=== PATIENT | male | born 1945 | race Caucasian/White ===

== ENCOUNTER 2016-08-05 07:45 | Day surgery (SDC) | payer OTHER, MEDICARE ==
[2016-08-04 14:38] VITALS: BMI 30.3
[2016-08-05] MEDS ORDERED: LIDOCAINE HCL/PF 2% SDV 5ML VIAL ONE (08:17)
[2016-08-05] MEDS ORDERED: PROPOFOL 40 ML ONE (08:17)
[2016-08-05 08:56] VITALS: TEMP 97.5
[2016-08-05 09:26] VITALS: PULSE 65
[2016-08-05 09:41] VITALS: BP 123/74
--- NOTE | 2016-08-06 15:53 | PATH ---
Surgical Pathology Report Patient Name: URMILA DANIELS [facility]. Rec. #: [id number] /Age/Gender: 1945 (Age: 71) / M Account: [id number] Location: [facility]-ENDOSCOPY Taken: 08/05/2016 Received: 08/05/2016 Reported: 08/06/2016 Physicians: Tima Anderson M.D. Specimen(s) Received A: BX DUODENUM B: BX ANTRUM C: BX BODY OF STOMACH D: BX DISTAL ESOPHAGUS-GE JUNCTION E: BX MID ESOPHAGUS Clinical History Reflux, history of colon cancer Gastritis Final Diagnosis A. DUODENUM, BIOPSY: DUODENAL MUCOSA WITH CHRONIC INFLAMMATION, FOCAL CYDNEY'S GLANDS HYPERPLASIA AND FOCAL GASTRIC METAPLASIA CONSISTENT WITH PEPTIC DUODENITIS. NO HISTOLOGIC EVIDENCE OF GLUTEN SENSITIVE ENTEROPATHY (CELIAC DISEASE). B. STOMACH, ANTRUM, BIOPSY: GASTRIC ANTRAL MUCOSA WITH MODERATE CHRONIC GASTRITIS AND MILD REACTIVE GASTROPATHY. IMMUNOSTAIN FOR H. PYLORI IS NEGATIVE FOR ORGANISMS. C. STOMACH, BODY, BIOPSY: GASTRIC OXYNTIC MUCOSA WITH MODERATE CHRONIC GASTRITIS. IMMUNOSTAIN FOR H. PYLORI IS NEGATIVE FOR ORGANISMS. D. DISTAL ESOPHAGUS/GE JUNCTION, BIOPSY: SQUAMOCOLUMNAR JUNCTIONAL MUCOSA WITH ACTIVE AND CHRONIC INFLAMMATION WITH FOCAL SURFACE EROSION, REFLUX TYPE CHANGES, AND FOCAL INTESTINAL METAPLASIA (SEE COMMENT). NEGATIVE FOR DYSPLASIA. Comment: The findings may be compatible with Pastrana's esophagus in proper endoscopic settings. Endoscopic correlations and follow up are suggested. E. ESOPHAGUS, MID, BIOPSY: SQUAMOUS EPITHELIUM WITH CHRONIC INFLAMMATION REFLUX TYPE CHANGES. NO EVIDENCE OF EOSINOPHILIC ESOPHAGITIS. Electronically Signed Jeovany Valdez M.D. Gross Description A. Received in formalin, labeled "biopsy duodenum" are 4 chung, irregular portions of soft tissue ranging from 0.2-0.5 cm in greatest dimension. The specimens are submitted in toto in one cassette. B. Received in formalin, labeled "biopsy antrum" are 2 chung, irregular portions of soft tissue measuring 0.3 and 0.4 cm in greatest dimension. The specimens are submitted in toto in one cassette. C. Received in formalin, labeled "biopsy body of stomach" are 2 chung, irregular portions of soft tissue measuring 0.1 and 0.4 cm in greatest dimension. The specimens are submitted in toto in one cassette. D. Received in formalin, labeled "biopsy distal esophagus" are 4 chung, irregular portions of soft tissue ranging from 0.1-0.5 cm in greatest dimension. The specimens are submitted in toto in one cassette. E. Received in formalin, labeled "biopsy mid esophagus" are 2 chung, irregular portions of soft tissue averaging 0.3 cm in greatest dimension. The specimens are submitted in toto in one cassette. 08/05/201608/05/2016
== END 2016-08-05 09:58 | disposition home or self-care (01) ==
LOC: JASU-ENDO 07:45
PROVIDERS: ATTEND Internal Medicine Gastroenterology
PROC: 0DB98ZX Excision of Duodenum, Via Natural or Artificial Opening Endoscopic, Diagnostic (ICD-10-PCS; 2016-08-05)
PROC: 0DB68ZX Excision of Stomach, Via Natural or Artificial Opening Endoscopic, Diagnostic (ICD-10-PCS; 2016-08-05)
PROC: 0DB28ZX Excision of Middle Esophagus, Via Natural or Artificial Opening Endoscopic, Diagnostic (ICD-10-PCS; 2016-08-05)
PROC: 0DB38ZX Excision of Lower Esophagus, Via Natural or Artificial Opening Endoscopic, Diagnostic (ICD-10-PCS; principal; 2016-08-05 08:45)
DX: K29.50 Unspecified chronic gastritis without bleeding (principal); K29.80 Duodenitis without bleeding
CPT/HCPCS: 88305-TC; 88342-TC

== ENCOUNTER 2017-04-07 08:38 | Day surgery (SDC) | payer OTHER, MEDICARE ==
[2017-04-06 12:10] VITALS: BMI 29.5
[2017-04-07] MEDS ORDERED: LIDOCAINE HCL 2% (20ML MULTI-DOSE VIAL) NR ONE (09:15)
[2017-04-07] MEDS ORDERED: PROPOFOL 20 ML ONE ×2 (09:15)
[2017-04-07 09:50] VITALS: TEMP 97.3
[2017-04-07 11:39] VITALS: BP 114/66; PULSE 60
== END 2017-04-07 10:40 | disposition home or self-care (01) ==
LOC: JASU-ENDO 08:38
PROVIDERS: ATTEND Internal Medicine Gastroenterology
PROC: 0DJ08ZZ Inspection of Upper Intestinal Tract, Via Natural or Artificial Opening Endoscopic (ICD-10-PCS; principal; 2017-04-07 10:15)
DX: K44.9 Diaphragmatic hernia without obstruction or gangrene (principal)

== ENCOUNTER 2018-12-14 08:31 | Day surgery (SDC) | payer OTHER, MEDICARE | END 2018-12-14 11:30 | disposition home or self-care (01) | LOC: JASU-ENDO 08:31 ==

== ENCOUNTER 2019-11-01 06:40 | Day surgery (SDC) | payer OTHER, MEDICARE ==
[2019-11-01 09:16] VITALS: BP 113/71; PULSE 52; TEMP 99
== END 2019-11-01 09:18 | disposition home or self-care (01) ==
LOC: JASU-ENDO 06:40
PROVIDERS: ATTEND Internal Medicine Gastroenterology
PROC: 0DJD8ZZ Inspection of Lower Intestinal Tract, Via Natural or Artificial Opening Endoscopic (ICD-10-PCS; principal; 2019-11-01 08:00)
DX: K57.30 Diverticulosis of large intestine without perforation or abscess without bleeding (principal); K91.89 Other postprocedural complications and disorders of digestive system; Z85.038 Personal history of other malignant neoplasm of large intestine

== ENCOUNTER 2021-10-03 04:37 | Day surgery (SDC) | payer OTHER, MEDICARE ==
[2021-09-30 14:04] VITALS: BMI 29.7
[2021-10-03 11:22] VITALS: TEMP 97.3
[2021-10-03 11:43] VITALS: PULSE 59
[2021-10-03 11:48] VITALS: BP 107/47
== END 2021-10-03 11:55 | disposition home or self-care (01) ==
LOC: JASU-ENDO 04:37
PROVIDERS: ATTEND Internal Medicine Gastroenterology
PROC: 0DB78ZX Excision of Stomach, Pylorus, Via Natural or Artificial Opening Endoscopic, Diagnostic (ICD-10-PCS; 2021-10-03)
PROC: 0DB68ZX Excision of Stomach, Via Natural or Artificial Opening Endoscopic, Diagnostic (ICD-10-PCS; principal; 2021-10-03 11:15)
DX: K21.9 Gastro-esophageal reflux disease without esophagitis (principal); K44.9 Diaphragmatic hernia without obstruction or gangrene; K29.50 Unspecified chronic gastritis without bleeding
CPT/HCPCS: 88305-TC; 88342-TC

== ENCOUNTER 2022-09-25 04:40 | Day surgery (SDC) | payer OTHER, MEDICARE ==
[2022-09-24 12:49] VITALS: BMI 29.2
[2022-09-25 11:03] VITALS: TEMP 97.7
[2022-09-25 13:42] VITALS: BP 115/65; PULSE 60; RESP 13
== END 2022-09-25 13:43 | disposition home or self-care (01) ==
LOC: JASU-ENDO 04:40
PROVIDERS: ATTEND Internal Medicine Gastroenterology
PROC: 0DBL8ZX Excision of Transverse Colon, Via Natural or Artificial Opening Endoscopic, Diagnostic (ICD-10-PCS; principal; 2022-09-25 11:45)
DX: Z12.11 Encounter for screening for malignant neoplasm of colon (principal); D12.3 Benign neoplasm of transverse colon; Z98.0 Intestinal bypass and anastomosis status; Z85.038 Personal history of other malignant neoplasm of large intestine
CPT/HCPCS: 88305-TC